=== PATIENT | male | born 1955 | race Two or more races ===

== ENCOUNTER 2017-02-08 00:38 | Inpatient (IN) | payer MEDICARE, OTHER ==
[~2017-02-08] VITALS: Ht 170.2 cm; Wt 91.6 kg
[2017-02-08 04:00] VITALS: BP 154/85
[2017-02-08] MEDS ORDERED: LORAZEPAM 0.5 MG TABLET PO PRN ×2 (04:00→16:00)
[2017-02-08] MEDS ORDERED: MAG HYDROX/AL HYDROX/SIMETH 30 ML UDC PO PRN (04:00)
[2017-02-08] MEDS ORDERED: MAGNESIUM HYDROXIDE 30 ML UDC PO PRN (04:00)
[2017-02-08] MEDS ORDERED: ZOLPIDEM TARTRATE 5 MG TABLET PO PRN (04:00)
[2017-02-08] MEDS ORDERED: ACETAMINOPHEN 325 MG TABLET PO PRN ×2 (04:00→09:00)
--- NOTE | 2017-02-08 04:00 | NUR ---
GPS SUBSTATION TECHNICIAN NOTES: ADMITTED A 61YO MALE FROM [facility] ON 5150 HOLD FOR DTS. PER HOLD THE PATIENT HAD A PLAN TO POISON SELF AND HIS DOG WITH A RAT POISON . IT WAS ALSO STATED IN THE HOLD THAT THE PATIENT KIDNAPPED THE DOG FROM THE CERTIFIED OPHTHALMIC TECHNOLOGIST'S HOME WHERE IT WAS SUPPOSED TO RECEIVE MEDICAL CARE, PATIENT STATED"I HAVE THE DOG AND WE ARE GOING TO BE GONE" PATIENT CAME INTO THE UNIT AND THEN USHERED TO BED. REALITY ORIENTATION DONE. ORIENTATION TO UNIT, STAFF, POLICIES, GUIDELINES, CARE PLAN DONE. BELONGINGS AND CONTRABAND CHECKED. UPON FACE TO FACE ASSESSMENT, PATIENT APPEARS DISHEVELED, UNKEMPT, ALERT AND ORIENTED X3, EASILY AGITATED, GUARDED, UNPREDICTABLE, DEPRESSED. SKIN AND BODY ASSESSMENT DONE WITH DORIS BILLINGS AND SHEMAR OPOLE. PATIENT HAS A SURGICAL WOUND ON THE LEFT LOWER LEG, APPEARS CLEAN WITH STERI STRIPS IN PLACE. Q15 MIN CHECKS INITIATED. CARE PLAN SPECIFIC INITIATED. PROVIDED PATIENT WITH ORAL FLUIDS TOLERATED. PATIENT INFORMED THE NURSE REGARDING HIS BOOT FOR THE LEFT LEG, EXPLAINED TO PATIENT THAT HE NEEDS A SITTER FOR IT. SITTER WILL BE PROVIDED DURING THE DAY SHIFT. ENVIRONMENTAL SAFETY CHECK DONE. SAFETY AND FALL PRECAUTIONS OBSERVED. CALL SHAY PLACED WITHIN PATIENT'S REACH. BED LOWERED. MED RECON DONE. PSYCH AND MEDICAL DOCTORS INFORMED OF THE SAID ADMISSION. PATIENT HAS NO FAMILY/ NEXT OF KIN LISTED ON FILE. WILL ENDORSE PATIENT TO DAY SHIFT NURSE FOR CONTINUITY OF CARE.
[2017-02-08] MEDS ORDERED: LIDO30AD10 TP (06:49)
[2017-02-08] MEDS ORDERED: SULF1TAB48 PO (06:49)
[2017-02-08] MEDS ORDERED: LEVE500T9 PO (06:49)
[2017-02-08] MEDS ORDERED: QUET50TA PO (06:49)
[2017-02-08] MEDS ORDERED: LORA1TAB82 PO (06:49)
[2017-02-08] MEDS ORDERED: ACET-868 PO (06:49)
[2017-02-08] MEDS ORDERED: OXYC-28 PO (06:49)
[2017-02-08] MEDS ORDERED: TRAM50TA2 PO (06:49)
[2017-02-08] MEDS ORDERED: THIA100T13 PO (06:49)
[2017-02-08] MEDS ORDERED: ESCI10TA PO (06:49)
[2017-02-08] MEDS ORDERED: NAPR220C46 PO (06:49)
[2017-02-08] MEDS ORDERED: SENN-18 PO (06:49)
[2017-02-08] MEDS ORDERED: NICO1PAT28 TD (06:49)
[2017-02-08] MEDS ORDERED: CIPR-262 PO (06:49)
[2017-02-08] MEDS ORDERED: FOLI1TAB16 PO (06:49)
[2017-02-08 07:37] LABS: BILIRUBIN,TOTAL 0.5 mg/dL (0.2-1.0); CALCIUM, SERUM 8.4 mg/dL (8.5-10.1); CREATININE 0.9 mg/dL (0.6-1.3); POTASSIUM 3.9 mmol/L (3.5-5.1); TOTAL PROTEIN, SERUM 8.2 g/dL (6.4-8.2)
[2017-02-08 08:00] VITALS: BP 130/69
[2017-02-08] MEDS ORDERED: TRAMADOL HCL 50 MG TABLET PO PRN (09:00)
[2017-02-08] MEDS ORDERED: LIDOCAINE 5% (PATCH) 1 EA PATCH TP PRN (09:00)
[2017-02-08] MEDS: NICOTINE PATCH (21MG) 21 MG PATCH.TD24 TD SCH ×2 (09:00→10:39)
--- NOTE | 2017-02-08 10:06 | NUR ---
WOUND CARE CONSULT: PT PRESENTS WITH STERI STRIPS TO LEFT LOWER LEG, PRESENT ON ADMISSION. PT REPORTS THAT HE HAD [facility] PRIOR TO ADMISSION HERE. NO DRAINAGE NOTED. RECOMMEND SURGICAL CONSULT/FOLLOW UP. PT CONTINENT AND ABLE TO MOVE INDEPENDENTLY IN BED. WILL SEE PRN. DENIS IN AGREEMENT WITH PLAN OF CARE. Addendum: 02/08/17 at 1008 by CARLENE TEIXEIRA WNDNU Amended: Links added.
[2017-02-08] MEDS: FOLIC ACID 1 MG TABLET PO SCH (10:39)
[2017-02-08] MEDS: SENNOSIDES 8.6 MG TABLET PO SCH ×2 (10:39→18:16)
[2017-02-08] MEDS: LEVETIRACETAM (250 MG) 250 MG TABLET PO SCH ×2 (10:44→20:31)
[2017-02-08] MEDS: THIAMINE HCL 100 MG TABLET PO SCH (10:44)
[2017-02-08] MEDS: NAPROXEN 250 MG TABLET PO SCH ×2 (10:44→18:15)
[2017-02-08] MEDS: DULOXETINE HCL 30 MG CAPSULE.DR PO SCH (14:26)
[2017-02-08 16:00] VITALS: BP 144/94
[2017-02-08] MEDS: SULFAMETH/TRIMETH 800/160 MG 1 UDTAB TABLET PO SCH (18:15)
--- NOTE | 2017-02-08 18:50 | NUR ---
dr. zepeda,dr. owens in to see pt.
--- NOTE | 2017-02-08 19:39 | NUR ---
GPS/RN NOTE: AWAKE, RESTING IN BED, NO APPARENT DISTRESS NOTED. NO COMPLAINTS MADE AT THIS TIME.
[2017-02-08 20:16] VITALS: BP 146/86
[2017-02-08] MEDS: CIPROFLOXACIN HCL 500 MG TABLET PO SCH (20:31)
[2017-02-08] MEDS: QUETIAPINE FUMARATE 25 MG TABLET PO SCH (21:02)
[2017-02-09] MEDS: oxyCODONE/APAP (5/325 MG) 1 UDTAB TABLET PO PRN (05:35)
--- NOTE | 2017-02-09 05:47 | NUR ---
GPS/RN NOTE: C/O PAIN LEFT LOWER LEG, 6/10 ON PAIN SCALE, PERCOCET 5/325 MG TAB 1 PO GIVEN.
[2017-02-09 07:41] LABS: CALCIUM, SERUM 8.8 mg/dL (8.5-10.1); CREATININE 0.9 mg/dL (0.6-1.3); POTASSIUM 4.1 mmol/L (3.5-5.1)
[2017-02-09 08:00] VITALS: BP 123/76
[2017-02-09] MEDS: THIAMINE HCL 100 MG TABLET PO SCH (08:14)
[2017-02-09] MEDS: NAPROXEN 250 MG TABLET PO SCH ×2 (08:14→16:27)
[2017-02-09] MEDS: FOLIC ACID 1 MG TABLET PO SCH (08:14)
[2017-02-09] MEDS: DULOXETINE HCL 30 MG CAPSULE.DR PO SCH (08:14)
[2017-02-09] MEDS: NICOTINE PATCH (21MG) 21 MG PATCH.TD24 TD SCH ×2 (08:14→08:28)
[2017-02-09] MEDS: LEVETIRACETAM (250 MG) 250 MG TABLET PO SCH ×2 (08:14→22:00)
[2017-02-09] MEDS: SULFAMETH/TRIMETH 800/160 MG 1 UDTAB TABLET PO SCH ×2 (08:14→21:59)
[2017-02-09] MEDS: SENNOSIDES 8.6 MG TABLET PO SCH ×2 (08:14→16:27)
[2017-02-09] MEDS: CIPROFLOXACIN HCL 500 MG TABLET PO SCH ×2 (08:14→21:59)
[2017-02-09] MEDS ORDERED: SULFAMETH/TRIMETH 800/160 MG 1 UDTAB TABLET PO SCH (14:01)
[2017-02-09 16:00] VITALS: BP 125/76
[2017-02-09] MEDS: LACTOBACILLUS RHAMNOSUS GG 1 EACH CAP.SPRINK PO SCH (16:27)
[2017-02-09 20:00] VITALS: BP 135/83
[2017-02-09] MEDS: MUPIROCIN OINT 2% 22 GM TUBE SCH (21:59)
[2017-02-09] MEDS: QUETIAPINE FUMARATE 25 MG TABLET PO SCH (22:00)
--- NOTE | 2017-02-10 07:00 | NUR ---
RN-CO: OBTAINED AN ORDER FOR DR LOPEZ FOR 1:1 SITTER . PATIENT NEEDS TO WEAR A LEG BRACES WITH METAL.
[2017-02-10 08:00] VITALS: BP 124/74
[2017-02-10] MEDS: DULOXETINE HCL 30 MG CAPSULE.DR PO SCH (08:10)
[2017-02-10] MEDS: SULFAMETH/TRIMETH 800/160 MG 1 UDTAB TABLET PO SCH ×2 (08:10→21:06)
[2017-02-10] MEDS: LEVETIRACETAM (250 MG) 250 MG TABLET PO SCH ×2 (08:10→21:06)
[2017-02-10] MEDS: NICOTINE PATCH (21MG) 21 MG PATCH.TD24 TD SCH (08:10)
[2017-02-10] MEDS: LACTOBACILLUS RHAMNOSUS GG 1 EACH CAP.SPRINK PO SCH ×2 (08:10→16:50)
[2017-02-10] MEDS: SENNOSIDES 8.6 MG TABLET PO SCH ×2 (08:10→16:50)
[2017-02-10] MEDS: CIPROFLOXACIN HCL 500 MG TABLET PO SCH ×2 (08:10→21:06)
[2017-02-10] MEDS: NAPROXEN 250 MG TABLET PO SCH ×2 (08:10→16:50)
[2017-02-10] MEDS: THIAMINE HCL 100 MG TABLET PO SCH (08:10)
[2017-02-10] MEDS: FOLIC ACID 1 MG TABLET PO SCH (08:10)
[2017-02-10] MEDS: MUPIROCIN OINT 2% 22 GM TUBE SCH ×2 (09:00→21:06)
--- NOTE | 2017-02-10 11:11 | NUR ---
Initial discharge plan: Pt. is homeless and may need placement. SW will find appropriate placement if pt. agrees to be in a facility. SW will follow up with MD and Pt. and will help form safe and proper discharge.
[2017-02-10 16:00] VITALS: BP 132/75
--- NOTE | 2017-02-10 16:26 | NUR ---
SW received a voicemail from Genevieve from [place] who provided the phone number for pt's LILLIANA Guerra [phone].
[2017-02-10 20:00] VITALS: BP 118/81
[2017-02-10] MEDS: QUETIAPINE FUMARATE 25 MG TABLET PO SCH (22:19)
[2017-02-11 08:26] VITALS: BP 100/59
[2017-02-11] MEDS: NICOTINE PATCH (21MG) 21 MG PATCH.TD24 TD SCH (08:41)
[2017-02-11] MEDS: THIAMINE HCL 100 MG TABLET PO SCH (08:41)
[2017-02-11] MEDS: LACTOBACILLUS RHAMNOSUS GG 1 EACH CAP.SPRINK PO SCH ×2 (08:41→16:42)
[2017-02-11] MEDS: NAPROXEN 250 MG TABLET PO SCH ×2 (08:41→16:42)
[2017-02-11] MEDS: FOLIC ACID 1 MG TABLET PO SCH (08:41)
[2017-02-11] MEDS: LEVETIRACETAM (250 MG) 250 MG TABLET PO SCH ×2 (08:41→21:21)
[2017-02-11] MEDS: SULFAMETH/TRIMETH 800/160 MG 1 UDTAB TABLET PO SCH ×2 (08:41→21:21)
[2017-02-11] MEDS: SENNOSIDES 8.6 MG TABLET PO SCH ×2 (08:41→16:42)
[2017-02-11] MEDS: CIPROFLOXACIN HCL 500 MG TABLET PO SCH ×2 (08:41→21:21)
[2017-02-11] MEDS: DULOXETINE HCL 30 MG CAPSULE.DR PO SCH (08:41)
[2017-02-11] MEDS: MUPIROCIN OINT 2% 22 GM TUBE SCH ×2 (08:42→21:21)
[2017-02-11 16:00] VITALS: BP 105/67
[2017-02-11 20:00] VITALS: BP 117/71
[2017-02-11] MEDS: QUETIAPINE FUMARATE 25 MG TABLET PO SCH (21:58)
[2017-02-12 08:00] VITALS: BP 97/67
[2017-02-12] MEDS: NICOTINE PATCH (21MG) 21 MG PATCH.TD24 TD SCH ×2 (08:41→08:47)
[2017-02-12] MEDS: FOLIC ACID 1 MG TABLET PO SCH (08:42)
[2017-02-12] MEDS: LEVETIRACETAM (250 MG) 250 MG TABLET PO SCH ×2 (08:42→20:28)
[2017-02-12] MEDS: SENNOSIDES 8.6 MG TABLET PO SCH ×2 (08:42→16:35)
[2017-02-12] MEDS: THIAMINE HCL 100 MG TABLET PO SCH (08:42)
[2017-02-12] MEDS: LACTOBACILLUS RHAMNOSUS GG 1 EACH CAP.SPRINK PO SCH ×2 (08:42→16:35)
[2017-02-12] MEDS: DULOXETINE HCL 30 MG CAPSULE.DR PO SCH (08:42)
[2017-02-12] MEDS: NAPROXEN 250 MG TABLET PO SCH ×2 (08:42→16:35)
[2017-02-12] MEDS: CIPROFLOXACIN HCL 500 MG TABLET PO SCH ×2 (08:42→21:27)
[2017-02-12] MEDS: SULFAMETH/TRIMETH 800/160 MG 1 UDTAB TABLET PO SCH ×2 (08:42→20:27)
[2017-02-12] MEDS: MUPIROCIN OINT 2% 22 GM TUBE SCH ×2 (09:12→21:30)
[2017-02-12 15:50] VITALS: BP 103/63
[2017-02-12 19:58] VITALS: BP 98/61
[2017-02-12 20:15] VITALS: BP 126/76
[2017-02-12] MEDS: oxyCODONE/APAP (5/325 MG) 1 UDTAB TABLET PO PRN (20:27)
[2017-02-12] MEDS: QUETIAPINE FUMARATE 25 MG TABLET PO SCH (21:27)
--- NOTE | 2017-02-12 22:30 | NUR ---
GPS RN NOTES: PATIENT IN THE ROOM. WEEKLY SKIN ASSESSMENT PICTURES DONE. SACRAL AREA REDNESS NOT NOTED THIS TIME OF ASSESSMENT.
[2017-02-13 08:00] VITALS: BP 102/61
[2017-02-13] MEDS: LACTOBACILLUS RHAMNOSUS GG 1 EACH CAP.SPRINK PO SCH ×2 (08:31→16:49)
[2017-02-13] MEDS: CIPROFLOXACIN HCL 500 MG TABLET PO SCH ×2 (08:31→21:13)
[2017-02-13] MEDS: THIAMINE HCL 100 MG TABLET PO SCH (08:31)
[2017-02-13] MEDS: FOLIC ACID 1 MG TABLET PO SCH (08:31)
[2017-02-13] MEDS: DULOXETINE HCL 30 MG CAPSULE.DR PO SCH (08:31)
[2017-02-13] MEDS: LEVETIRACETAM (250 MG) 250 MG TABLET PO SCH ×2 (08:31→21:13)
[2017-02-13] MEDS: SENNOSIDES 8.6 MG TABLET PO SCH ×2 (08:32→16:50)
[2017-02-13] MEDS: NAPROXEN 250 MG TABLET PO SCH ×2 (08:32→16:50)
[2017-02-13] MEDS: NICOTINE PATCH (21MG) 21 MG PATCH.TD24 TD SCH (08:32)
[2017-02-13] MEDS: MUPIROCIN OINT 2% 22 GM TUBE SCH ×2 (08:42→21:12)
[2017-02-13] MEDS: SULFAMETH/TRIMETH 800/160 MG 1 UDTAB TABLET PO SCH ×2 (08:42→21:13)
--- NOTE | 2017-02-13 11:50 | NUR ---
Pt. was referred to [facility] [address] [place] [address] . Will follow up
--- NOTE | 2017-02-13 13:57 | NUR ---
WOUND CARE CONSULT: PATIENT SEEN AND SKIN ASSESSMENT DONE. PATIENT ALERT, INDEPENDENT WITH BED MOBILITY HOWEVER NEEDS PROMPTING, BJORN 17, CONTINENT. SEE TODAY'S SKIN ASSESSMENT IN PCS ALONG WITH RECOMMENDATIONS DISCUSSED WITH NURSING STAFF INCLUDING MOISTURE PROTECTION AND PRESSURE PREVENTION MEASURES. MD IN AGREEMENT WITH PLAN OF CARE. Addendum: 02/13/17 at 1359 by BOOKER JACOB WNDNU Amended: Links added.
[2017-02-13] MEDS ORDERED: Z GUARD REMEDY 2 OZ OINT TP PRN (14:00)
[2017-02-13] MEDS: oxyCODONE/APAP (5/325 MG) 1 UDTAB TABLET PO PRN (14:12)
--- NOTE | 2017-02-13 14:13 | NUR ---
[id number]: GAVE PERCOCET 5/325 MG PO DUE TO PAIN 8/10 ON LEFT LEG UPON PT REQUEST AND WILL CONTINUE TO MONITOR FOR EFFECTIVENESS OF MEDICATION.
--- NOTE | 2017-02-13 14:26 | NUR ---
[id number]: NOTIFIED DR. CONTRERAS IF HE WANTS TO ORDER SURGICAL CONSULT AND RETAIL SALES TEAMMATE CONSULT. PENDING RETURN PHONE CALL
[2017-02-13] MEDS: UREA 10% -AHA 4% CREAM 57 GM TUBE TP SCH ×2 (15:12→18:29)
[2017-02-13 16:00] VITALS: BP 121/74
[2017-02-13] MEDS: Z GUARD REMEDY 2 OZ OINT TP SCH ×2 (16:07→18:29)
--- NOTE | 2017-02-13 19:30 | NUR ---
GPS RN NOTE, RECEIVED PATIENT AWAKE AND IN BED, NO S/S OR COMPLAINTS OF PAIN AT THIS TIME. PATIENT IS DISPLAYING NO S/S OF APPARENT DISTRESS AT THIS TIME. PATIENT HAS A ONE TO ONE SITTER FOR HAVING A BOOT. PATIENT BREATHING IS UNLABORED WITH EQUAL RISE AND FALL OF THE CHEST. PATIENT IS ALERT AND ORIENTED X 3 ON ROOM AIR WITH A SPO2 95%. PATIENT COMPLIANT WITH MEDICATIONS, DEPRESSED, COOPERATIVE, AND NEEDS REORIENTATION. PATIENT DENIES SUICIDE AND HOMICIDAL IDEATIONS AT THIS TIME. PATIENT ASSISTED WITH TURNING AND REPOSITIONING Q2HR AND PRN FOR COMFORT AND CIRCULATION. PATIENT HAS NO NEEDS AT THIS TIME. PATIENT EDUCATED ON THE USE OF THE CALL SHAY. PATIENT BED SIDE RAILS UP X2 FOR SAFETY, BED IS LOCKED AND LOW WILL CONTINUE TO MONITOR AND MAINTAIN SAFETY.
[2017-02-13 19:45] VITALS: BP 123/67
[2017-02-13] MEDS: QUETIAPINE FUMARATE 25 MG TABLET PO SCH (21:13)
--- NOTE | 2017-02-13 21:21 | NUR ---
GPS RN NOTE, PATIENT HAS COMPLAINT OF LEFT LEG PAIN AT 6 OUT 10 ON THE PAIN SCALE AND WOULD LIKE MEDICATION AT THIS TIME. PATIENT VITAL SIGNS ARE STABLE. GAVE ULTRAM 50MG PO QID PRN ORDERED. WILL REASSESS PAIN AND I WILL CONTINUE TO MONITOR THIS PATIENT.
[2017-02-14] MEDS: Z GUARD REMEDY 2 OZ OINT TP SCH ×2 (06:10→17:22)
[2017-02-14 08:00] VITALS: BP 100/61
[2017-02-14] MEDS: LEVETIRACETAM (250 MG) 250 MG TABLET PO SCH ×2 (08:38→22:06)
[2017-02-14] MEDS: LACTOBACILLUS RHAMNOSUS GG 1 EACH CAP.SPRINK PO SCH ×2 (08:38→16:20)
[2017-02-14] MEDS: SULFAMETH/TRIMETH 800/160 MG 1 UDTAB TABLET PO SCH ×2 (08:38→22:06)
[2017-02-14] MEDS: SENNOSIDES 8.6 MG TABLET PO SCH ×2 (08:39→16:20)
[2017-02-14] MEDS: NICOTINE PATCH (21MG) 21 MG PATCH.TD24 TD SCH (08:39)
[2017-02-14] MEDS: THIAMINE HCL 100 MG TABLET PO SCH (08:39)
[2017-02-14] MEDS: CIPROFLOXACIN HCL 500 MG TABLET PO SCH ×2 (08:39→22:07)
[2017-02-14] MEDS: MUPIROCIN OINT 2% 22 GM TUBE SCH ×2 (08:39→22:05)
[2017-02-14] MEDS: FOLIC ACID 1 MG TABLET PO SCH (08:39)
[2017-02-14] MEDS: NAPROXEN 250 MG TABLET PO SCH ×2 (08:39→16:20)
[2017-02-14] MEDS: DULOXETINE HCL 30 MG CAPSULE.DR PO SCH (08:39)
[2017-02-14] MEDS: UREA 10% -AHA 4% CREAM 57 GM TUBE TP SCH ×2 (08:53→16:21)
--- NOTE | 2017-02-14 15:30 | NUR ---
Pt. was [facility] and [facility] [address] [facility] [place] [address] per Janet from admission.
[2017-02-14 15:38] VITALS: BP 112/70
[2017-02-14 20:24] VITALS: BP 125/65
[2017-02-14 20:25] VITALS: BP 116/61
[2017-02-14] MEDS: QUETIAPINE FUMARATE 25 MG TABLET PO SCH (22:07)
[2017-02-15] MEDS: Z GUARD REMEDY 2 OZ OINT TP SCH ×2 (06:49→17:26)
[2017-02-15 08:00] VITALS: BP 107/60
[2017-02-15] MEDS: CIPROFLOXACIN HCL 500 MG TABLET PO SCH ×2 (08:27→20:54)
[2017-02-15] MEDS: MUPIROCIN OINT 2% 22 GM TUBE SCH ×2 (08:27→21:01)
[2017-02-15] MEDS: SULFAMETH/TRIMETH 800/160 MG 1 UDTAB TABLET PO SCH ×2 (08:27→20:54)
[2017-02-15] MEDS: LACTOBACILLUS RHAMNOSUS GG 1 EACH CAP.SPRINK PO SCH ×2 (08:28→16:21)
[2017-02-15] MEDS: NAPROXEN 250 MG TABLET PO SCH ×2 (08:28→16:21)
[2017-02-15] MEDS: THIAMINE HCL 100 MG TABLET PO SCH (08:28)
[2017-02-15] MEDS: SENNOSIDES 8.6 MG TABLET PO SCH ×2 (08:28→16:21)
[2017-02-15] MEDS: FOLIC ACID 1 MG TABLET PO SCH (08:28)
[2017-02-15] MEDS: LEVETIRACETAM (250 MG) 250 MG TABLET PO SCH ×2 (08:28→20:53)
[2017-02-15] MEDS: DULOXETINE HCL 30 MG CAPSULE.DR PO SCH (08:30)
[2017-02-15] MEDS: NICOTINE PATCH (21MG) 21 MG PATCH.TD24 TD SCH (08:30)
[2017-02-15] MEDS: UREA 10% -AHA 4% CREAM 57 GM TUBE TP SCH ×2 (08:39→16:29)
[2017-02-15 16:00] VITALS: BP 117/67
[2017-02-15] MEDS: oxyCODONE/APAP (5/325 MG) 1 UDTAB TABLET PO PRN (16:22)
--- NOTE | 2017-02-15 16:22 | NUR ---
[id number]: GAVE OXYCODONE/ACETAMINOPHEN 5/325MG PO DUE TO 10/10 LEFT FOOT AND LEG PAIN UPON PT REQUEST AND WILL CONTINUE TO MONITOR FOR EFFECTIVENESS OF MEDICATION
[2017-02-15 20:55] VITALS: BP 130/75
[2017-02-15] MEDS: QUETIAPINE FUMARATE 25 MG TABLET PO SCH (21:01)
[2017-02-16] MEDS: Z GUARD REMEDY 2 OZ OINT TP SCH (06:08)
[2017-02-16 07:48] VITALS: BP 114/66
[2017-02-16 08:00] VITALS: BP 114/66
[2017-02-16] MEDS: THIAMINE HCL 100 MG TABLET PO SCH (08:24)
[2017-02-16] MEDS: LACTOBACILLUS RHAMNOSUS GG 1 EACH CAP.SPRINK PO SCH (08:24)
[2017-02-16] MEDS: SULFAMETH/TRIMETH 800/160 MG 1 UDTAB TABLET PO SCH (08:24)
[2017-02-16] MEDS: NAPROXEN 250 MG TABLET PO SCH (08:24)
[2017-02-16] MEDS: NICOTINE PATCH (21MG) 21 MG PATCH.TD24 TD SCH (08:24)
[2017-02-16] MEDS: SENNOSIDES 8.6 MG TABLET PO SCH (08:25)
[2017-02-16] MEDS: FOLIC ACID 1 MG TABLET PO SCH (08:25)
[2017-02-16] MEDS: LEVETIRACETAM (250 MG) 250 MG TABLET PO SCH (08:25)
[2017-02-16] MEDS: CIPROFLOXACIN HCL 500 MG TABLET PO SCH (08:25)
[2017-02-16] MEDS: DULOXETINE HCL 30 MG CAPSULE.DR PO SCH (08:25)
[2017-02-16] MEDS: UREA 10% -AHA 4% CREAM 57 GM TUBE TP SCH (08:30)
[2017-02-16] MEDS: MUPIROCIN OINT 2% 22 GM TUBE SCH (08:30)
[2017-02-16] MEDS: oxyCODONE/APAP (5/325 MG) 1 UDTAB TABLET PO PRN (11:29)
--- NOTE | 2017-02-16 14:45 | NUR ---
GPS PROJECT DEVELOPMENT ENGINEER NOTES: PATIENT DISCHARGED TO [facility]. PATIENT'S CONDITION IS STABLE FOR DISCHARGE, VS STABLE. PATIENT DENIES SI/HI/AVH AT THE TIME OF DISCHARGE. ALL BELONGINGS RETURNED TO THE PATIENT. MEDS RECONCILED AND THE COPY OF THE CURRENT MED LIST ATTACHED TO THE DISCHARGE PAPERWORK. PHOTOS TAKEN AND DOCUMENTED IN THE CHART. REPORT GIVEN TO KIAH GEORGE AT THE FACILITY.
--- NOTE | 2017-02-16 15:15 | NUR ---
Discharge note: Pt. was discharged [facility] [place] [address] [facility]. Pt's DPOA Maia Guerra [phone] has been notified and agreed with discharge plan. She was provided with facility information to follow up with patient. Pt. was calm, compliant, and cooperative. Denied suicidal/ homicidal ideations and agreed with the discharge plan. Discharge information and report has been provided to the accepting facility and discharge paperwork has been signed.
== END 2017-02-16 14:45 | DRG 885 ==
LOC: GPS 03:38
PROVIDERS: ADMIT Psychiatry & Neurology Psychiatry; ATTEND Internal Medicine
DX: F33.3 Major depressive disorder, recurrent, severe with psychotic symptoms (principal); E44.0 Moderate protein-calorie malnutrition; R45.851 Suicidal ideations; F19.20 Other psychoactive substance dependence, uncomplicated; F10.20 Alcohol dependence, uncomplicated; G89.4 Chronic pain syndrome; F41.9 Anxiety disorder, unspecified; F12.90 Cannabis use, unspecified, uncomplicated; F17.210 Nicotine dependence, cigarettes, uncomplicated; Z59.0 Homelessness; E88.09 Other disorders of plasma-protein metabolism, not elsewhere classified; M62.50 Muscle wasting and atrophy, not elsewhere classified, unspecified site; Z68.31 Body mass index [BMI] 31.0-31.9, adult; Z22.322 Carrier or suspected carrier of Methicillin resistant Staphylococcus aureus; L60.3 Nail dystrophy; L98.9 Disorder of the skin and subcutaneous tissue, unspecified; L85.3 Xerosis cutis; S90.812A Abrasion, left foot, initial encounter; X58.XXXA Exposure to other specified factors, initial encounter; Y93.9 Activity, unspecified; Y92.9 Unspecified place or not applicable; Y99.9 Unspecified external cause status; Z98.890 Other specified postprocedural states; L03.031 Cellulitis of right toe; S91.302A Unspecified open wound, left foot, initial encounter; Z79.899 Other long term (current) drug therapy
CPT/HCPCS: 36415; 80048-TC; 80053-TC; 80061-TC; 87081-TC; 97001-TC; 97110-TC; 97116-TC; 97530-TC; A6402